=== PATIENT | male | born 2000 | race Caucasian/White ===

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

== ENCOUNTER 2020-05-24 10:04 | Emergency (ER) | payer MEDICAID ==
[~2020-05-24] VITALS: Ht 167.6 cm; Wt 95.3 kg
[2020-05-24 10:12] VITALS: BP 135/68
--- NOTE | 2020-05-24 10:17 | NUR ---
DR AGOSTO AT TENT
--- NOTE | 2020-05-24 10:17 | NUR ---
C/O NON-PRODUCTIVE COUGH X SUNDAY. DENIES CP OR SOB. DENIES PAIN. TAKING DAYQUIL, SOME RELIEF. HR 113. PT ALERT AND AWAKE, AMBULATORY. PT ALSO REQUESTING NOTE TO RETURN TO WORK. PMH- CHILDHOOD ASTHMA-NOT CURRENTLY TAKING MEDICATIONS
--- NOTE | 2020-05-24 10:19 | NUR ---
RR EVEN AND UNLABORED
--- NOTE | 2020-05-24 10:35 | NUR ---
COVID SWAB COLLECTED
--- NOTE | 2020-05-24 10:36 | NUR ---
Patient discharged.Written and verbal after care instructions given and explained REGARDING COVID PRECAUTIONS. Patient verbalized understanding. Ambulatory with steady gait. All questions addressed prior to discharge. Advised to follow up with PMD. PT INFORMED THAT WE WILL CONTACT HIM IF TEST IS COVID POSITIVE. 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
== END 2020-05-24 10:36 | disposition home or self-care (01) ==
LOC: MED 10:04
DX: R05 Cough (principal); Z20.828 Contact with and (suspected) exposure to other viral communicable diseases; R43.8 Other disturbances of smell and taste
CPT/HCPCS: 99283; U0003